=== PATIENT | female | born 1945 | race Caucasian/White ===

== ENCOUNTER → 2019-09-03 12:43 | Outpatient (CLI) | payer MEDICARE, SELFPAY ==
[2019-09-03 15:13] LABS: Erythrocyte Sedimentation Rate 42 mm/hr (0-30)
[2019-09-03 15:18] LABS: Absolute Neutrophil Count 6.8 X10^3/uL (2.0-7.7); Basophil% 0.6 % (0-1); Eosinophils% 30.6 % (0-5); Hemoglobin 14.7 g/dL (12.0-15.0); Mean Corpuscular Hgb 31.1 pg (27.0-32.0); Mean Corpuscular Volume 97.5 fL (81-99); Mean Platelet Vol. 11.3 fl (6.2-12.0); Monocyte# 0.65 X10^3/uL; Monocyte% 4.1 % (0-10); NRBC Flagged by Analyzer 0 % (0-5); Neutrophil # 6.83 X10^3/uL (2.7-7.7); Neutrophil % 43.4 % (47-70); POSITIVE DIFFERENTIAL YES; Platelet Count 260 K/mm3 (150-450); RBC Distribution Width SD 49.1 fl (35.1-43.9); Red Blood Count 4.72 M/mm3 (4.2-5.4); White Blood Count 15.8 K/mm3 (4.4-11.0)
[2019-09-03 15:26] LABS: ALB/GLOB Ratio 0.9 RATIO (0.9-2.4); AST(SGOT) 15 U/L (15-37); Alanine Aminotransfer ALT/SGPT 26 U/L (13-56); Albumin, Serum 3.5 g/dL (3.2-5.0); Alkaline Phosphatase 113 U/L (45-117); Anion Gap 9 (5-15); BUN 22 mg/dL (7-18); BUN/Creat Ratio 18.2 RATIO (10-20); Calcium,Total 9.3 mg/dL (8.5-10.1); Chloride 105 mmol/L (98-107); Creatinine, Serum 1.21 mg/dL (0.55-1.02); EST Glomerular Filtration Rate 46 mL/min (>60); Est Glom Filt Rate - Afr Amer 56 mL/min (>60); Glucose 137 mg/dL (74-106); Potassium 3.7 mmol/L (3.5-5.1); Protein, Total 7.5 g/dL (6.4-8.2); Sodium Level 139 mmol/L (136-145); Thyroid Stim Hormone (TSH) 1.48 uIU/mL (0.358-3.74)
[2019-09-03 15:44] LABS: Eosinophil# 4.82 X10^3/uL
[2019-09-03 15:45] LABS: Differential Indicated SCAN CRITERIA MET
[2019-09-03 17:09] LABS: Hemoglobin A1c 6.7 % (3.8-5.6)
[2019-09-07 09:38] LABS: Pathologist Review Reviewed
== END ==
PROVIDERS: PCP Family Medicine; Referring Provider Orthopaedic Surgery; Visit Provider Orthopaedic Surgery
DX: M16.11 Unilateral primary osteoarthritis, right hip (principal); M25.551 Pain in right hip; E11.9 Type 2 diabetes mellitus without complications; M10.9 Gout, unspecified; I10 Essential (primary) hypertension
CPT/HCPCS: 36415; 80053; 83036; 84443; 84550; 85025; 85652; 86140

== ENCOUNTER → 2019-09-13 | Outpatient (CLI) | payer MEDICARE, SELFPAY ==
--- NOTE | 2019-09-13 13:22 | US_ITS ---
STUDY: THYROID ULTRASOUND REASON FOR EXAM: Female, 74 years old. NODULES TECHNIQUE: Ultrasound evaluation of the thyroid was performed with real-time and static fuentes-scale imaging. COMPARISON: None. FINDINGS: RIGHT LOBE: The right lobe of the thyroid gland measures 4.1 x 1.6 x 1.7 cm. There is a homogeneous echotexture. Nodule 1:4 x 3 x 4 mm solid hypoechoic wider than tall, smoothly marginated nodule with no echogenic foci (TR 4) (in the anterior right lobe consistent with a small adenoma. LEFT LOBE: The left lobe of the thyroid gland measures 5.7 x 2.2 x 2.5 cm. There is a homogeneous echotexture. Nodule 2:27 x 24 x 19 mm solid hypoechoic wider than tall smoothly marginated nodule with no echogenic foci (TR 4) in the mid left lobe for which ultrasound-guided biopsy is recommended. Nodule 3:8 x 5 x 8 mm cystic anechoic wider than tall smoothly marginated nodule with no echogenic foci (TR 1) in the anterior left lobe consistent with a colloid cyst. ISTHMUS: The isthmus measures 3 minimal meters thick. . The regional lymph nodes are normal. US/Thyroid IMPRESSION: Dominant nodule in the left lobe for which ultrasound-guided biopsy is recommended. Electronically Signed: Spencer Fair MD at 14:15 EDT Tel , Service support ,
--- NOTE | 2019-09-13 13:50 | CDU_ITS ---
Reason For Study: Stenosis Rt. Velocities/BP Lt. Velocities/BP Prox CCA 67.9/9 cm/sec. Prox CCA 79.6/15.7 cm/sec. Mid CCA 55.6/6.5 cm/sec. Mid CCA 70.5/15.7 cm/sec. Dist CCA 45.8/9 cm/sec. Dist CCA 76/19.4 cm/sec. Prox ICA 279.9/76.3 cm/sec. Prox ICA 50.1/16 cm/sec. Mid ICA 202.4/21.3 cm/sec. Mid ICA 76.5/23.7 cm/sec. No flow noted in the distal ICA. Dist ICA 89.7/29.2 cm/sec. Rt. ICA/CCA = 5.0. Lt. ICA/CCA = 1.2. Prox ECA 83.9/10.2 cm/sec. Prox ECA 85.1/10.2 cm/sec. Rt. Vert. 61.4/12.1 cm/sec. Lt. Vert. 51.2/14.9 cm/sec. Right Extracranial There is homogeneous, smooth atherosclerotic plaque noted in the right common carotid artery. There is heterogeneous, irregular atherosclerotic plaque noted in the right internal carotid artery. There is homogeneous, smooth atherosclerotic plaque noted in the right external carotid artery. Antegrade flow is noted in the right vertebral artery. Left Extracranial There is homogeneous, smooth atherosclerotic plaque noted in the left common carotid artery. There is heterogeneous, irregular atherosclerotic plaque noted in the left internal carotid artery. There is intimal thickening but no significant atherosclerotic plaque noted in the left external carotid artery. Antegrade flow is noted in the left vertebral artery. Procedure Carotid Duplex 51969. Right ICA technically difficult to visualize due to vessel size. Exam performed in department. Interpretation Summary Extensive heterogenous irregular plaque within the proximal right internal carotid artery with greater than 70% stenosis. Additional concern that no flow is identified within the distal right internal carotid <50% stenosis right external carotid Irregular calcific plaque with shadowing proximal left internal carotid with less than 50% stenosis <50% stenosis left external carotid Patent, antegrade vertebrals bilaterally I do not have evidence of previous duplex examinations and will notify Dr. Dennise Navas of current findings--page sent. Ordering Physician: Dennise Navas Referring Physician: Dennise Navas Performed By: Yvette Iyer RVT
--- NOTE | 2019-09-13 14:35 | MRI_ITS ---
STUDY: MRI RIGHT HIP REASON FOR EXAM: Right hip pain, lack of movement, osteoarthritis. TECHNIQUE: Standardized fat and water weighted pulse sequences were obtained in all 3 orthogonal planes. COMPARISON: None. FINDINGS: There is advanced right hip arthrosis with small marginal osteophytes, chondral loss and subchondral cystic change/mild bone edema of the femoral head and acetabulum (inversion recovery coronal images 13-18). There is degeneration of the right labrum. Normal femoral neck and intratrochanteric region. Normal gluteus minimus, medius and iliopsoas tendons and distal insertions. There is mild right greater trochanteric bursitis (inversion recovery coronal image 13). Normal superior and inferior pubic rami. There mild degenerative changes of the pubic symphysis. Normal ischial tuberosity. Normal origin of the hamstring tendons. Normal visualized iliac wing, sacroiliac joint, and sacral ala. There is atrophy with fat replacement of the right gluteus medius and minimus muscles (T1 coronal images 13-15). MRI/Lower Ext Joint Only (Routine) IMPRESSION: Right hip arthrosis with degeneration of the labrum. Mild right greater trochanteric bursitis. Atrophy of the right gluteus medius and minimus muscles. Electronically Signed: Domingo Goodman MD at 9:15 EDT Tel , Service support ,
== END | disposition home or self-care (01) ==
LOC: US 13:21
PROVIDERS: PCP Family Medicine; Referring Provider Family Medicine; Visit Provider Family Medicine
DX: I65.21 Occlusion and stenosis of right carotid artery (principal); E04.1 Nontoxic single thyroid nodule; M16.11 Unilateral primary osteoarthritis, right hip
CPT/HCPCS: 73721; 76536; 93880

== ENCOUNTER → 2019-09-20 | Outpatient (CLI) | payer MEDICARE, SELFPAY ==
[2019-09-20 13:29] LABS: Cholesterol 229 mg/dL (200); High Density Lipoprotein 46 mg/dL; Triglycerides 304 mg/dL; Very Low Density Lipoprotein 61 mg/dL (5-40)
== END | disposition home or self-care (01) ==
LOC: BFHLAB 10:28
PROVIDERS: PCP Family Medicine; Visit Provider Family Medicine
DX: E11.9 Type 2 diabetes mellitus without complications (principal); M10.9 Gout, unspecified; I10 Essential (primary) hypertension
CPT/HCPCS: 36415; 80061

== ENCOUNTER → 2019-12-03 | Outpatient (CLI) | payer MEDICARE, SELFPAY ==
--- NOTE | 2019-12-03 09:45 | RAD_ITS ---
STUDY: X-RAY - ESOPHAGUS (BARIUM SWALLOW) WITH FLUOROSCOPY REASON FOR EXAM: Female, 74 years old. Dysphagia for 6 weeks, surg-gb, c-sect, family history of cancer TECHNIQUE: 32 view(s) of the esophagus were obtained following swallowing of barium. FLUOROSCOPY TIME (if supplied): (0:47) minutes/seconds COMPARISON: None. FINDINGS: There is no demonstrated esophageal foreign body. There is no demonstrated stricture or mucosal abnormality. There is a small hiatal hernia of the fundus of the stomach. The patient ingested a 12 mm tablet of barium without any difficulty. There is atherosclerotic tortuosity of the aortic arch and descending thoracic aorta. Normal visualized pulmonary parenchyma. There are diffuse degenerative changes of the visualized thoracic spine. RAD/Esophagus Dual Contrast IMPRESSION: Small sliding hernia without gastroesophageal reflux. Electronically Signed: Xu Butt, at 11:10 EDT , Service support ,
== END | disposition home or self-care (01) ==
PROVIDERS: PCP Family Medicine; Referring Provider Otolaryngology Otolaryngology/Facial Plastic Surgery; Visit Provider Otolaryngology Otolaryngology/Facial Plastic Surgery
DX: R13.10 Dysphagia, unspecified (principal)
CPT/HCPCS: 74221

== ENCOUNTER → 2020-08-23 09:41 | Outpatient (CLI) | payer MEDICARE, SELFPAY ==
[2020-08-23 12:12] LABS: Absolute Lymphocyte Count 2.43 X10^3/uL (0.83-4.51); Absolute Neutrophil Count 6.8 X10^3/uL (2.0-7.7); Basophil# 0.06 X10^3/uL; Basophil% 0.6 % (0-1); Eosinophil# 0.35 X10^3/uL; Eosinophils% 3.4 % (0-5); Hematocrit 45.4 % (37-47); Hemoglobin 14.8 g/dL (12.0-15.0); Lymphocyte # 2.43 X10^3/ul (0.83-4.51); Lymphocyte % 23.6 % (19-41); Mean Corp Hgb Conc 32.6 g/dL (32-36); Mean Corpuscular Hgb 30.6 pg (27.0-32.0); Mean Corpuscular Volume 93.8 fL (81-99); Mean Platelet Vol. 11.3 fl (6.2-12.0); Monocyte# 0.61 X10^3/uL; Monocyte% 5.9 % (0-10); NRBC Flagged by Analyzer 0 % (0-5); Neutrophil # 6.76 X10^3/uL (2.7-7.7); Neutrophil % 65.8 % (47-70); Platelet Count 297 K/mm3 (150-450); RBC Distribution Width SD 47.7 fl (35.1-43.9); Red Blood Count 4.84 M/mm3 (4.2-5.4); White Blood Count 10.3 K/mm3 (4.4-11.0)
[2020-08-23 12:41] LABS: ALB/GLOB Ratio 0.8 RATIO (0.9-2.4); AST(SGOT) 18 U/L (15-37); Alanine Aminotransfer ALT/SGPT 20 U/L (13-56); Albumin, Serum 3.3 g/dL (3.2-5.0); Alkaline Phosphatase 102 U/L (45-117); Anion Gap 8 (5-15); BUN 24 mg/dL (7-18); BUN/Creat Ratio 21.1 RATIO (10-20); Calcium,Total 9.2 mg/dL (8.5-10.1); Chloride 103 mmol/L (98-107); Cholesterol 151 mg/dL (200); Creatinine, Serum 1.14 mg/dL (0.55-1.02); EST Glomerular Filtration Rate 50 mL/min (>60); Est Glom Filt Rate - Afr Amer 60 mL/min (>60); Globulin 3.9 g/dL (2.2-4.2); Glucose 169 mg/dL (74-106); High Density Lipoprotein 50 mg/dL; Protein, Total 7.2 g/dL (6.4-8.2); Sodium Level 139 mmol/L (136-145); Thyroid Stim Hormone (TSH) 1.23 uIU/mL (0.358-3.74); Triglycerides 233 mg/dL; Uric Acid 5.1 mg/dL (2.6-6.0); Very Low Density Lipoprotein 47 mg/dL (5-40)
== END ==
PROVIDERS: PCP Family Medicine; Referring Provider Family Medicine; Visit Provider Family Medicine
DX: E11.9 Type 2 diabetes mellitus without complications (principal); I10 Essential (primary) hypertension; M10.9 Gout, unspecified
CPT/HCPCS: 36415; 80053; 80061; 84443; 84550; 85025

== ENCOUNTER → 2020-08-31 11:00 | Outpatient (CLI) | payer MEDICARE, SELFPAY | PROVIDERS: PCP Family Medicine; Referring Provider Family Medicine; Visit Provider Family Medicine | DX: G47.33 Obstructive sleep apnea (adult) (pediatric) (principal) | CPT/HCPCS: 95806 ==

== ENCOUNTER → 2020-09-08 08:21 | Outpatient (CLI) | payer MEDICARE, SELFPAY | PROVIDERS: PCP Family Medicine; Visit Provider Family Medicine | DX: Z46.89 Encounter for fitting and adjustment of other specified devices (principal) ==

== ENCOUNTER → 2020-09-27 | Outpatient (CLI) | payer MEDICARE, SELFPAY | END | disposition home or self-care (01) | PROVIDERS: PCP Family Medicine; Referring Provider Family Medicine; Visit Provider Family Medicine | DX: R19.7 Diarrhea, unspecified (principal) | CPT/HCPCS: 83630; 87177; 87209; 87493; 87506 ==

== ENCOUNTER → 2020-10-16 14:56 | Outpatient (CLI) | payer MEDICARE, SELFPAY ==
--- NOTE | 2020-10-16 14:59 | CT_ITS ---
STUDY: CT ABDOMEN AND PELVIS WITHOUT CONTRAST REASON FOR EXAM: Female, 75 years old. Nausea/vomiting/diarrhea RADIATION DOSAGE (If Supplied By Facility): CTDIvol = ( 27.34 ) mGy, DLP = ( 1319.52 ) mGycm TECHNIQUE: Transaxial images were obtained from the dome of the diaphragm to the symphysis pubis with oral contrast, and without intravenous contrast. Sagittal and coronal images were reconstructed. Individualized dose optimization techniques were used for this CT. COMPARISON: None. FINDINGS: There are chronic interstitial fibrotic changes of the lung bases. The visualized portions of the heart are within normal limits. There is decreased attenuation of the liver consistent with steatosis. There are surgical clips in the gallbladder fossa consistent with a prior cholecystectomy. Normal spleen. Normal pancreas. There is a 2.5 cm smooth, low attenuation left adrenal mass, consistent with an adrenal adenoma. Normal right adrenal gland. Normal right kidney. Normal left kidney. Normal visualized stomach. Normal small intestine. There are multiple colonic diverticula consistent with diverticulosis. There is non-visualization of the appendix. There is diffuse atherosclerotic calcification of the abdominal aorta, without a demonstrated aneurysm. Normal inferior vena cava. Normal retroperitoneum. Normal urinary bladder. There is absence of the uterus consistent with a prior hysterectomy. Normal abdominal wall. There are diffuse degenerative changes of the visualized lumbar spine, and pelvis. Surgical hardware in the lower lumbar spine. Complication. Replaced right hip joint free of constipation CT/Abdomen/Pelvis without Cont IMPRESSION: Fatty liver, no discrete lesion 2.5 cm likely left adrenal adenoma No free intraperitoneal fluid, air, or suspicious adenopathy Diffuse atherosclerosis Degenerative bony changes Electronically Signed: Bo Muniz MD at 17:27 EDT , Service support ,
== END ==
PROVIDERS: PCP Family Medicine; Referring Provider Family Medicine; Visit Provider Family Medicine
DX: R19.7 Diarrhea, unspecified (principal)
CPT/HCPCS: 74176

== ENCOUNTER → 2021-08-02 | Outpatient (CLI) | payer MEDICARE, SELFPAY ==
[2021-08-02 12:33] LABS: Absolute Lymphocyte Count 2.34 X10^3/uL (0.83-4.51); Absolute Neutrophil Count 8.3 X10^3/uL (2.0-7.7); Basophil# 0.05 X10^3/uL; Basophil% 0.4 % (0-1); Eosinophil# 0.23 X10^3/uL; Hematocrit 46.7 % (37-47); Hemoglobin 15.5 g/dL (12.0-15.0); Lymphocyte # 2.34 X10^3/ul (0.83-4.51); Lymphocyte % 20.2 % (19-41); Mean Corp Hgb Conc 33.2 g/dL (32-36); Mean Corpuscular Hgb 31.8 pg (27.0-32.0); Mean Corpuscular Volume 95.9 fL (81-99); Mean Platelet Vol. 11.5 fl (6.2-12.0); Monocyte# 0.52 X10^3/uL; Monocyte% 4.5 % (0-10); NRBC Flagged by Analyzer 0 % (0-5); Neutrophil # 8.34 X10^3/uL (2.7-7.7); Neutrophil % 72.2 % (47-70); Platelet Count 265 K/mm3 (150-450); RBC Distribution Width CV 13.4 % (11.6-14.6); RBC Distribution Width SD 47.4 fl (35.1-43.9); Red Blood Count 4.87 M/mm3 (4.2-5.4); White Blood Count 11.6 K/mm3 (4.4-11.0)
[2021-08-02 13:20] LABS: ALB/GLOB Ratio 0.8 RATIO (0.9-2.4); AST(SGOT) 30 U/L (15-37); Alanine Aminotransfer ALT/SGPT 30 U/L (13-56); Albumin, Serum 3.4 g/dL (3.2-5.0); Alkaline Phosphatase 105 U/L (45-117); Anion Gap 10 (5-15); BUN 26 mg/dL (7-18); Calcium,Total 9.1 mg/dL (8.5-10.1); Chloride 101 mmol/L (98-107); Cholesterol 158 mg/dL (200); Creatinine, Serum 1.18 mg/dL (0.55-1.02); EST Glomerular Filtration Rate 48 mL/min (>60); Est Glom Filt Rate - Afr Amer 58 mL/min (>60); Globulin 4.2 g/dL (2.2-4.2); Glucose 261 mg/dL (74-106); High Density Lipoprotein 49 mg/dL; Potassium 3.6 mmol/L (3.5-5.1); Protein, Total 7.6 g/dL (6.4-8.2); Sodium Level 135 mmol/L (136-145); Thyroid Stim Hormone (TSH) 1.62 uIU/mL (0.358-3.74); Triglycerides 249 mg/dL; Uric Acid 4.9 mg/dL (2.6-6.0); Very Low Density Lipoprotein 50 mg/dL (5-40)
== END | disposition home or self-care (01) ==
LOC: MTLAB 11:14
PROVIDERS: PCP Family Medicine; Referring Provider Family Medicine; Visit Provider Family Medicine
DX: I10 Essential (primary) hypertension (principal); E11.9 Type 2 diabetes mellitus without complications; M10.9 Gout, unspecified
CPT/HCPCS: 36415; 80053; 80061; 84443; 84550; 85025

== ENCOUNTER → 2021-08-22 | Outpatient (CLI) | payer MEDICARE, SELFPAY ==
--- NOTE | 2021-08-22 13:44 | BI_ITS ---
MAMMOGRAPHY - BILATERAL SCREENING REASON FOR EXAM: Female, 76 years old. Routine annual screening examination. PERTINENT HISTORY: Non-contributory. TECHNIQUE: Digital bilateral breast zac (3D mammographic acquisition) in the CC and MLO projections. 2-D mediolateral oblique (MLO) and craniocaudad (CC) views of both breasts were obtained. CAD: Full Field Digital Mammography with Computer Added Detection was performed. COMPARISON: No comparison mammograms available at this time. If any prior films become available, an addendum to this report can be generated. FINDINGS: Breast Composition: There are scattered areas of fibroglandular density. There are no dominant masses or suspicious calcifications. No other significant abnormalities are identified. BI/SCRN MAMM (CAD)W/ZAC BILAT IMPRESSION: Negative screening mammogram. Yearly followup mammogram recommended. (A) ASSESSMENT CATEGORY: BIRADS Category 1: Negative. A letter regarding these results will be sent to the patient by the facility within 30 days. Approximately 10% of breast cancers are not detected by mammography. A normal mammogram should not delay biopsy of a clinically suspicious abnormality. [id number] Electronically Signed: Xu Butt MD at 12:57 EDT ,
== END | disposition home or self-care (01) ==
LOC: OPBI 13:42
PROVIDERS: PCP Family Medicine; Referring Provider Family Medicine; Visit Provider Family Medicine
DX: Z12.31 Encounter for screening mammogram for malignant neoplasm of breast (principal)
CPT/HCPCS: 77063; 77067

== ENCOUNTER 2021-09-21 08:06 | Day surgery (SDC) | payer MEDICARE, SELFPAY ==
--- NOTE | 2021-09-21 08:18 | HP.PCM_ITS ---
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 Is patient in pain?: No Allergies cimetidine [From [facility]] Allergy (Mild, Verified 09/04/21 15:38) RashPenicillins Allergy (Mild, Verified 09/04/21 15:38) rash Medications allopurinol 100 mg tablet 100 mg PO DAILY 09/04/21 [History Confirmed 09/04/21] aspirin 81 mg tablet,delayed release (Adult Aspirin Regimen) 81 mg PO DAILY 09/04/21 [History Confirmed 09/04/21] atorvastatin 40 mg tablet 40 mg PO DAILY 09/04/21 [History Confirmed 09/04/21] diltiazem HCl 240 mg capsule,extended release 24 hr 240 mg PO DAILY 09/04/21 [History Confirmed 09/04/21] duloxetine 60 mg capsule,delayed release 60 mg PO DAILY 09/04/21 [History Confirmed 09/04/21] famotidine 10 mg tablet (Zantac-360 (famotidine)) 10 mg PO DAILY 09/04/21 [History Confirmed 09/04/21] fesoterodine 8 mg tablet,extended release 24 hr (Toviaz) 8 mg PO DAILY 09/04/21 [History Confirmed 09/04/21] glimepiride 2 mg tablet 2 mg PO DAILY 09/04/21 [History Confirmed 09/04/21] guselkumab 100 mg/mL subcutaneous auto-injector (Tremfya) 100 mg subcut Q8W 09/04/21 [History Confirmed 09/04/21] losartan 100 mg-hydrochlorothiazide 25 mg tablet 1 tab PO DAILY 09/04/21 [History Confirmed 09/04/21] meloxicam 15 mg tablet 15 mg PO DAILY 09/04/21 [History Confirmed 09/04/21] metoprolol succinate 50 mg tablet,extended release 24 hr 50 mg PO DAILY 09/04/21 [History Confirmed 09/04/21] multivitamin with iron 1 tab PO DAILY 09/04/21 [History Confirmed 09/04/21] PFSH Surgical History?(Updated 09/04/21 @ 15:32 by Avelina Frederick) Previous back surgery S/P cholecystectomy S/P total knee arthroplasty Family History?(Updated 09/04/21 @ 15:34 by Avelina Frederick) Father Asthma Kidney diseaseMother?? Diabetes Heart disease High cholesterolBrother?? Prostate cancer Social History Smoking Status:? Never smoker alcohol intake:? never substance use type:? does not use HPI HPI HPI: YUKI KAY, is a 76 F who presents to the office today for surgical consultation regarding a colonoscopy.? The patient is referred by Dr. Dennise Navas and a written copy of my surgical consult recommendations will return to her.? By historical report her most recent colonoscopy was 2014 performed in [place].? She had a 3 mm polyp of the sigmoid colon with recommendations for follow-up colonoscopy at 5 years..? Her most recent hemoglobin A1c was 9.4.? She is on low-dose aspirin and omeprazole 40 mg daily.? Body weight is approximately 295 pounds with a BMI of 52.2. ROS General General: Yes fatigue; No weight change, appetite, colon cancer, breast cancer or weakness HEENT HEENT: Yes difficulty swallowing and eye surgery; No eye injury, swollen glands or hoarseness Endo Endocrine: Yes diabetes mellitus; No thyroid disease, thyroid cancer, Hair loss, heat intolerance or cold intol erance Skin Skin: No rash or changing moles Breast Breast: No left breast lump, right breast lump, nipple discharge, breast pain, abnormal mammogram, abnormal US or breast enlargement Musc Musculoskeletal: Yes back problems, arthritis and gout; No rheumatoid arthritis or joint pain Cardio Cardiovascular: Yes high blood pressure; No murmur, pacemaker, heart disease, atrial fibrillation, heart attack, heart stent, palpitations, shortness of breat with exertion or chest pain Psych Psychiatric: Yes depression and anxiety; No hearing voices Resp Respiratory: Yes shortness of breath, Yes sleep apnea, No cough, No COPD, No asthma, No emphysema and No wheezing Gastro Gastrointestinal: No abdominal pain, No nausea or vomiting, No diarrhea, Yes constipation, No blood in stool, Yes acid reflux, No hemorrhoids, No ulcers, Yes gallbladder problem and No black,tarry stools Nnamdi Hematologic: No blood thinners, No blood disorders, No bleeding, No anemia and No blood clots Neuro Neurologic: No system reviewed and no additional complaints, except as documented, No as per HPI, No abnormal gait, No abnormal hearing, No abnormal movements, No abnormal speech, No behavioral changes, No burning sensations, No confusion, No convulsions, No disequilibrium, No dizziness, No localized weakness, No frequent falls, No headache(s), No lack of coordination, No loss of vision, No memory loss, No numbness, No other visual disturbances, No radicular pain, No restless legs, No sensory deficit, No syncope, No tingling, No tremor(s), No weakness and No other Exam Const General: cooperative, comfortable and no acute distress HENMT Head: normal to inspection Neck Neck: normal visual inspection Resp Effort & Inspection: decreased respiratory effort Auscultation: clear to auscultation bilaterally Cardio Rate: regular rate Rhythm: regular rhythm GI Other: Abdomen is large, I did not attempt having the patient get up on the examination table Extrem General: no calf tenderness Psych Appearance: grossly normal Assessment and Plan Assessment and Plan (1) Personal history of colonic polyps: ?Status:?Acute (2) Sleep apnea: ?Status:?Acute (3) Anxiety: ?Status:?Acute (4) Depression: ?Status:?Acute (5) High blood pressure: ?Status:?Chronic (6) Gout: ?Status:?Acute (7) Arthritis: ?Status:?Acute (8) Diabetes: ?Status:?Acute Plan I recommend the patient a surveillance colonoscopy based on her previous history of colon polyp in 2015.? She is aware of the technique, benefit, risk of alternatives.? Medical comorbidities include diabetes with recent [id number]-[id number] and hypertension and body habitus.? I propose that we attempt this with monitored anesthesia care.? She is aware of the technique, benefit, risk, alternatives.? We will schedule procedure at her discretion.? I appreciate the opportunity of assisting with her surgical care. She does take a low-dose aspirin which can be continued. Copy: Dr. Dennise Herring M.D., F.A.C.S. I have re-examined the patient. There are no clinical changes since date of exam. Josh Herring M.D., F.A.C.S.
[2021-09-21 08:43] VITALS: BP 133/89; PULSE 77; RESP 18; TEMP 36.4; O2SAT 94; BMI 51.1
[2021-09-21] MEDS: Lactated Ringers 1,000 ML 15 ML IV (08:50)
[2021-09-21 08:51] LABS: Bedside Glucose 223 mg/dL (74-106)
--- NOTE | 2021-09-21 09:30 | COLBX_PTH ---
PATIENT: YUKI KAY LOC: [facility] U#:[id number] AGE/SX: 76/F ROOM: RE09/21/[address]: Dr. Josh Herring MD : 1945 BED: DIS: 09/21/2021 SPEC #: [id number] RECD: 09/21/21 12:20 STATUS: RODNEY RONIT #: [id number] NERI: 09/21/21 09:[address]: Josh Herring DEPT: SURGICAL PATHOLOGY RECD BY: Liiver Tran ENTERED: 09/21/21 13:05 SP TYPE: COLON BX OTHR DR: Dr. Dennise Navas MD Tissues: A - Cecum, NOS B - Ascending colon C - Descending colon Procedures: Surgery Specimen Level IV HEADER OPERATION: Colonoscopy (MAC) PRE-OP DIAGNOSIS: History of colonic polyps TISSUE SUBMITTED: A ? Cecum polyp, B ? Proximal ascending colon polyp, C ? Descending colon polyp MICROSCOPIC DIAGNOSIS A. Cecal polyp, biopsy: Fragments of tubular adenoma. B. Proximal ascending colon polyp, biopsy: Consistent with inflammatory polyp. C. Descending colon polyp, biopsy: Tubular adenoma. AM:joslyn 09/24/2021 MICROSCOPIC DESCRIPTION Slides are reviewed. GROSS DESCRIPTION A - Received in fixative is one container labeled with the patient's name and designated cecum polyp. The specimen consists of two irregular fragments of light alberts soft tissue that in aggregate measure 0.6 x 0.3 x 0.1 cm. The specimen is totally submitted in one cassette. B - Received in fixative is one container labeled with the patient's name and designated proximal ascending polyp. The specimen consists of multiple irregular fragments of light alberts soft tissue that in aggregate measure 0.3 x 0.3 x 0.1 cm. The specimen is totally submitted in one cassette. C - Received in fixative is one container labeled with the patient's name and designated descending colon polyp. The specimen consists of one irregular fragment of light alberts soft tissue that measures 0.3 x 0.3 x 0.1 cm. The specimen is totally submitted in one cassette. / REEMA:joslyn 09/21/2021 TC:5 CPT: 17437 x3
--- NOTE | 2021-09-21 11:15 | OP.COLON_ITS ---
Patient Name: Carlos Salazar Procedure Date: 09/21/2021 10:38 AM Date of : 1945 Age: 76 Procedure: Colonoscopy Indications: High risk colon cancer surveillance: Personal history of colonic polyps Providers: Josh Herring MD Medicines: See the Anesthesia note for documentation of the administered medications Patient Profile: Last Colonoscopy: 2014. Complications: No immediate complications. Procedure: Pre-Anesthesia Assessment: - Prior to the procedure, a History and Physical was performed, and patient medications and allergies were reviewed. The patient's tolerance of previous anesthesia was also reviewed. The risks and benefits of the procedure and the sedation options and risks were discussed with the patient. All questions were answered, and informed consent was obtained. Prior Anticoagulants: The patient has taken no previous anticoagulant or antiplatelet agents. ASA Grade Assessment: III - A patient with severe systemic disease. After reviewing the risks and benefits, the patient was deemed in satisfactory condition to undergo the procedure. After I obtained informed consent, the scope was passed under direct vision. Throughout the procedure, the patient's blood pressure, pulse, and oxygen saturations were monitored continuously. The adult colonoscope was introduced through the anus and advanced to the cecum, identified by appendiceal orifice and ileocecal valve. The colonoscopy was performed without difficulty. The patient tolerated the procedure well. The quality of the bowel preparation was fair. The ileocecal valve and the appendiceal orifice were photographed. Scope In: 10:46:48 AM Scope Withdrawal Time 0 hours 16 minutes 16 seconds Scope Out: 11:08:08 AM Total Procedure Duration Time 0 hours 21 minutes 20 seconds Findings: The digital rectal exam findings include non-thrombosed external hemorrhoids, non-thrombosed internal hemorrhoids and internal hemorrhoids that prolapse with straining, but spontaneously regress to the resting position (Grade II). A 4 mm polyp was found in the cecum. The polyp was sessile. The polyp was removed with a cold biopsy forceps. Resection and retrieval were complete. A 4 mm polyp was found in the proximal ascending colon. The polyp was sessile. Biopsies were taken with a cold forceps for histology. A 6 mm polyp was found in the mid descending colon. The polyp was sessile. The polyp was removed with a hot snare. Resection and retrieval were complete. Multiple diverticula were found in the entire colon. Impression: - Preparation of the colon was fair. - Non-thrombosed external hemorrhoids, non-thrombosed internal hemorrhoids and internal hemorrhoids that prolapse with straining, but spontaneously regress to the resting position (Grade II) found on digital rectal exam. - One 4 mm polyp in the cecum, removed with a cold biopsy forceps. Resected and retrieved. - One 4 mm polyp in the proximal ascending colon. This was a slight fullness, not classic polyp. Biopsied. - One 6 mm polyp in the mid descending colon, removed with a hot snare. Resected and retrieved. - Diverticulosis in the entire examined colon. Recommendation: - Discharge patient to home. - Resume previous diet. - Continue present medications. - Repeat colonoscopy in 5 years for surveillance based on pathology results. - Telephone my office for pathology results in 1 week. Procedure Code(s): --- Professional --- 78211, Colonoscopy, flexible; with removal of tumor(s), polyp(s), or other lesion(s) by snare technique 64110, 59, Colonoscopy, flexible; with biopsy, single or multiple Diagnosis Code(s): --- Professional --- Z86.010, Personal history of colonic polyps K64.1, Second degree hemorrhoids K64.4, Residual hemorrhoidal skin tags D12.0, Benign neoplasm of cecum D12.2, Benign neoplasm of ascending colon D12.4, Benign neoplasm of descending colon K57.30, Diverticulosis of large intestine without perforation or abscess without bleeding CPT copyright 2017 [employer]. All rights reserved. The codes documented in this report are preliminary and upon helper shear operator review may be revised to meet current compliance requirements. Josh Herring MD 09/21/2021 11:14:49 AM This report has been signed electronically. Number of Addenda: 0 Note Initiated On: 09/21/2021 10:38 AM
[2021-09-21 11:16] VITALS: BP 107/59; BP 133/89; PULSE 74; RESP 14; TEMP 36.4; O2SAT 91
--- NOTE | 2021-09-21 11:16 | OP.CCLET_ITS ---
09/21/2021 Dennise Navas [place] [id number] [place] [address] Re : Colonoscopy procedure for Carlos Salazar Dear Dr. Navas This procedure was performed on Tuesday, September 21, 2021. My impressions and recommendations are as follows: Impressions : - Preparation of the colon was fair. - Non-thrombosed external hemorrhoids, non-thrombosed internal hemorrhoids and internal hemorrhoids that prolapse with straining, but spontaneously regress to the resting position (Grade II) found on digital rectal exam. - One 4 mm polyp in the cecum, removed with a cold biopsy forceps. Resected and retrieved. - One 4 mm polyp in the proximal ascending colon. This was a slight fullness, not classic polyp. Biopsied. - One 6 mm polyp in the mid descending colon, removed with a hot snare. Resected and retrieved. - Diverticulosis in the entire examined colon. Recommendations : - Discharge patient to home. - Resume previous diet. - Continue present medications. - Repeat colonoscopy in 5 years for surveillance based on pathology results. - Telephone my office for pathology results in 1 week. My findings are described in the full procedure note, which is enclosed. If I can be of further assistance, please feel free to contact me at Doctor phone number(s): Work: . Sincerely, Josh Herring MD 09/21/2021 11:14:49 AM This report has been signed electronically.
[2021-09-21 11:20] VITALS: BP 104/62; BP 133/89; PULSE 74; RESP 73; O2SAT 98
[2021-09-21 11:25] VITALS: BP 103/62; BP 133/89; PULSE 70; RESP 16; O2SAT 96
[2021-09-21 11:31] VITALS: BP 116/71; BP 133/89; PULSE 70; RESP 18; TEMP 36.1; O2SAT 95
[2021-09-21 11:47] VITALS: BP 133/89
== END 2021-09-21 11:58 | disposition home or self-care (01) ==
LOC: EN 08:07 → AC 08:08
PROVIDERS: PCP Family Medicine; Referring Provider Family Medicine; Visit Provider Surgery
PROC: 0DJD8ZZ Inspection of Lower Intestinal Tract, Via Natural or Artificial Opening Endoscopic (ICD-10-PCS; CPT 45378; principal; 2021-09-21 09:25)
DX: D12.4 Benign neoplasm of descending colon (principal); E11.9 Type 2 diabetes mellitus without complications; D12.0 Benign neoplasm of cecum; K57.30 Diverticulosis of large intestine without perforation or abscess without bleeding; M19.90 Unspecified osteoarthritis, unspecified site; K64.1 Second degree hemorrhoids; K64.4 Residual hemorrhoidal skin tags; G47.30 Sleep apnea, unspecified; F32.A Depression, unspecified; F41.9 Anxiety disorder, unspecified; I10 Essential (primary) hypertension; M54.9 Dorsalgia, unspecified; G89.29 Other chronic pain; Z79.82 Long term (current) use of aspirin; Z79.899 Other long term (current) drug therapy; Z86.010 Personal history of colon polyps; Z79.84 Long term (current) use of oral hypoglycemic drugs
CPT/HCPCS: 45385; 45380; 82962; 88305; J7120; J2405

== ENCOUNTER → 2021-10-31 | Outpatient (CLI) | payer MEDICARE, SELFPAY ==
--- NOTE | 2021-10-31 12:05 | US_ITS ---
STUDY: THYROID ULTRASOUND REASON FOR EXAM: Female, 76 years old. NODULE TECHNIQUE: Ultrasound evaluation of the thyroid was performed with real-time and static fuentes-scale imaging. COMPARISON: 20 FINDINGS: RIGHT LOBE: The right lobe of the thyroid gland measures 4 x 1.6 x 1.9 cm. There is a heterogeneous echotexture. Multiple nodules. Nodule 1 measures 5 x 4 x 3 mm. This is superiorly located. Nodule #2 is in the midline measuring 4 x 4 by 3 mm. Nodule 3. It is in the midline measuring 8 x 4 x 4 mm. LEFT LOBE: The left lobe of the thyroid gland measures 5.8 x 2.3 x 2.9 cm. There is a heterogeneous echotexture. Multiple nodules. Nodule 1 measures 11 x 10 x 8 mm.Nodule #2 is in the midline measuring 8 x 10 x 4 mm.Nodule 3. It is in the mid gland measuring 31 x 21 x 25 mm. ISTHMUS: The isthmus measures 3.4 mm. US/Thyroid IMPRESSION: There are RIGHT nodules. This nodule is solid or almost completely solid, hypoechoic, [id number], smoothly marginated and contains no echogenic foci. TI-RADS points: 4. TI-RADS category: TR4. This nodule is moderately suspicious but no FNA or follow-up is necessary given the small size of this nodule. Left nodule #2. This nodule is cystic or nearly completely cystic. TI-RADS points: 0. TI-RADS category: TR1. This nodule is benign and no FNA or follow-up is necessary. Left nodule 1. This nodule is mixed cystic and solid, hypoechoic, [id number], smoothly marginated and contains no echogenic foci. TI-RADS points: 3. TI-RADS category: TR3. This nodule is mildly suspicious but no FNA or follow-up is necessary given the small size of this nodule. Nodule #3. This has increased in size. This nodule is solid or almost completely solid, hyperechoic or isoechoic, [id number]-[id number], smoothly marginated and contains no echogenic foci. TI-RADS points: 3. TI-RADS category: TR3. This nodule is mildly suspicious. Recommend FNA evaluation. Electronically Signed: Yemi Harding MD at 19:20 EDT Reading Location ID and State: [facility] / [place] , Service support ,
== END | disposition home or self-care (01) ==
LOC: US 12:03
PROVIDERS: PCP Family Medicine; Referring Provider Family Medicine; Visit Provider Family Medicine
DX: E04.1 Nontoxic single thyroid nodule (principal); I65.21 Occlusion and stenosis of right carotid artery
CPT/HCPCS: 76536

== ENCOUNTER → 2021-11-13 | Outpatient (CLI) | payer MEDICARE, SELFPAY ==
--- NOTE | 2021-11-13 13:45 | ASPSI_PTH ---
PATIENT: YUKI KAY LOC: [facility] U#:[id number] AGE/SX: 76/F ROOM: RE11/13/[address]: Dr. Josh Herring MD : 1945 BED: DIS: 11/13/2021 SPEC #: [id number] RECD: 11/13/21 16:08 STATUS: RODNEY COTTRELL #: [id number] NERI: 11/13/21 13:[address]: Josh Herring DEPT: CYTOLOGY RECD BY: Alexa Koo ENTERED: 11/14/21 08:06 SP TYPE: ASP BOLIVAR FISHER DR: Dr. Dennise Navas MD Tissues: Thyroid gland, NOS Procedures: Surgery Specimen Level IV Cytospin Fluid Cytology Other HEADER OPERATION: Left thyroid fine needle aspiration PRE-OP DIAGNOSIS: Multiple thyroid nodules TISSUE SUBMITTED: Left inferior thyroid x10 slides DIAGNOSIS CYTOLOGY Left inferior thyroid nodule, fine needle aspiration (smears): Consistent with benign follicular/colloid nodule with cystic changes ([place] Category II). Adequate for evaluation. See comment. REEMA:joslyn 11/14/2021 COMMENT Correlation with clinical, radiologic findings and appropriate follow up are necessary. CYTOLOGY STUDY Slides are reviewed. CYTOLOGY GROSS Received are ten smears labeled with the patient's name and designated per the requisition as left inferior thyroid. Submitted for staining. / joslyn 11/13/2021 TC:5 CPT: 52990
== END | disposition home or self-care (01) ==
LOC: LABSPEC 16:17
PROVIDERS: PCP Family Medicine; Visit Provider Surgery
DX: E04.2 Nontoxic multinodular goiter (principal)
CPT/HCPCS: 88108; 88161; 88305